=== PATIENT | female | born 1940 | race Caucasian/White ===

== ENCOUNTER 2025-02-14 12:04 | Emergency (ER) | payer MEDICARE | END 2025-02-14 15:15 | LOC: NAV ERS 12:04 | DX: S01.111A Laceration without foreign body of right eyelid and periocular area, initial encounter (principal); S01.511A Laceration without foreign body of lip, initial encounter; S80.01XA Contusion of right knee, initial encounter; I48.0 Paroxysmal atrial fibrillation; I11.0 Hypertensive heart disease with heart failure; I50.9 Heart failure, unspecified; E11.40 Type 2 diabetes mellitus with diabetic neuropathy, unspecified; W05.0XXA Fall from non-moving wheelchair, initial encounter; Z79.82 Long term (current) use of aspirin; Z79.899 Other long term (current) drug therapy | CPT/HCPCS: 12011; 70450; 72125 ==